=== PATIENT | female | born 1975 | race Caucasian/White ===

== ENCOUNTER 2016-04-22 00:18 | Emergency (ER) | payer BC ==
[~2016-04-22] VITALS: Ht 165.1 cm; Wt 128.0 kg
[~2016-04-22 00:18] MED LIST: AMOX500T PO; Z.0.BCPILL PO
[2016-04-22 00:23] VITALS: BP 179/113; PULSE 110; RESP 16; TEMP 98.4; O2SAT 99
[2016-04-22 00:59] VITALS: BP 179/113; PULSE 110; RESP 18; TEMP 98.4; O2SAT 99
[2016-04-22] MEDS ORDERED: BACT800T5 PO (01:31)
[2016-04-22] MEDS ORDERED: DOXY100C PO (01:31)
--- NOTE | 2016-04-22 01:33 | PD ---
HPI Chief Complaint: Skin Problem Time Seen by Provider: 01:16 Travel History International Travel<30 days: No Contact w/Intl Traveler<30days: No Traveled to known affect area: No History of Present Illness HPI The patient is a 40-year-old white female that 3 days ago had a single pimple on her right lateral lower leg. The next day she "popped" the pimple but then it started spreading and she has multiple lesions on her right lower leg. She states she has not had a tetanus shot in over 20 years. She denies any fever. She had put hot compresses on it but it has been spreading and getting worse. She denies any lesions elsewhere on her leg, there is a cluster on her right lower leg which is contained in a 3 cm x 2 cm area. [facility] Past Medical History Medical History: Denies Significant Hx Immunizations Current: No Tetanus Vaccination: > 5 Years Influenza Vaccination: No ?: Not LMP: 2- Past Surgical History Surgical History: No Previous Surgery Social History Alcohol Use: Yes (OCCASIONAL) Tobacco Use: No Substance Use: No Allergies-Medications (Allergen,Severity, Reaction): Coded Allergies: No Known Allergies (Verified , 04/22/16) Reported Meds & Prescriptions Reported Meds & Active Scripts Active No Active Prescriptions or Reported Medications Review of Systems Except as stated in HPI: all other systems reviewed are Neg Physical Exam Narrative GENERAL: Well-nourished, well-developed patient. SKIN: Warm and dry. There is a 4/2 by 3 cm area of violaceous skin in a cluster of what appeared to be ruptured pustules in the center. Surrounding this violaceous skin is an area of erythema which extends about 15 x 10 cm around the lower leg. It is not circumferential. HEAD: Normocephalic. EYES: No scleral icterus. No injection or drainage. NECK: Supple, trachea midline. No JVD or lymphadenopathy. CARDIOVASCULAR: Regular rate and rhythm without murmurs, gallops, or rubs. RESPIRATORY: Breath sounds equal bilaterally. No accessory muscle use. GASTROINTESTINAL: Abdomen soft, non-tender, nondistended. MUSCULOSKELETAL: No cyanosis, or edema. BACK: Nontender without obvious deformity. No CVA tenderness. Data Data Last Documented VS Vital Signs Date Time Temp Pulse Resp B/P Pulse Ox O2 Delivery O2 Flow Rate FiO2 04/22/16 00:59 98.4 110 18 179/113 99 04/22/16 00:23 Room Air [facility] Medical Decision Making Medical Screen Exam Complete: Yes Emergency Medical Condition: Yes Medical Record Reviewed: Yes Differential Diagnosis Staph infection, herpes zoster, herpes simplex, abscess Narrative Course The patient likely has a staph infection. When she popped the initial pimple at likely broken tainted and spread slightly to adjacent areas. She now has a staph infection with pustules and a surrounding area of cellulitis. There is no evidence for abscess formation. Plan: The patient be given doxycycline and Septra. She will get the first dose tonight. She will also get a tetanus shot. She needs to elevate it above her heart and use warm heating pad, turned on its lowest setting and interposing a towel between her skin and the pad. Diagnosis Primary Impression: Cellulitis due to Staphylococcus Additional Instructions: As we discussed, use a heating pad but turned on its lowest setting an interposed a towel between your skin and the pad. Warmth is good but we do not want hot. Washing the area by training the shower on it to clean it up is also a good idea. The antibiotics are both twice daily for 10 days. If worse, return to emergency department or follow-up with a primary care physician. Med/Other Pt SpecificInfo: Prescription(s) given Scripts Sulfamethoxazole-Trimethoprim (Bactrim DS)800-160 Mg Tab1 Tab PO BID #20 TAB Ref 0 Prov:Jordan Orozco MD 04/22/16 Doxycycline Hyclate 100 Mg [id number] Mg PO BID #20 CAP Ref 0 Prov:Jordan Orozco MD 04/22/16 Disposition: DISCHARGE HOME Condition: Stable Jordan Orozco MD Apr 22, 2016 01:33
[2016-04-22] MEDS ORDERED: DOXYCYCLINE HYCLATE 100 MG CAP PO ONE (01:45)
[2016-04-22] MEDS ORDERED: SULFAMETHOXAZOLE-TRIMETHOPRIM DS 800-160 MG TAB PO ONE (01:45)
[2016-04-22] MEDS ORDERED: DOXYCYCLINE HYCLATE 100 MG TAB PO ONE (01:45)
[2016-04-22] MEDS ORDERED: TETANUS/DIPHTHERIA TOXOID ADULT 0.5 ML VIAL IM ONE (01:45)
[2016-04-22 01:57] VITALS: BP 156/95
== END 2016-04-22 01:59 | disposition home or self-care (01) ==
LOC: PHED 00:18
DX: L03.115 Cellulitis of right lower limb (principal); B95.8 Unspecified staphylococcus as the cause of diseases classified elsewhere; Z23 Encounter for immunization
CPT/HCPCS: 90471; 90714